=== PATIENT | female | born 1985 | race Asian ===

== ENCOUNTER 2020-06-08 10:01 | Emergency (ER) | payer SELFPAY ==
--- NOTE | 2020-06-08 10:33 | ED Physician Documentation ---
PD HPI FEMALE - Stated complaint Stated Complaint: FEMALE - Chief complaint Chief Complaint: UTI - History obtained from History obtained from: Patient - History of Present Illness Timing - onset: Yesterday Timing - duration: Days (1-2) Timing - details: Abrupt onset, Still present Associated symptoms: Dysuria, Urinary frequency, Hematuria (today). No: Fever, Vaginal discharge, Genital sore/lesion Contributing factors: No: Exposed to STD Similar symptoms before: Has not had sx before Recently seen: Not recently seen Review of Systems Constitutional: denies: Fever, Chills Nose: denies: Rhinorrhea / runny nose, Congestion Throat: denies: Sore throat Respiratory: denies: Cough GI: denies: Abdominal Pain, Nausea, Vomiting, Diarrhea : reports: Dysuria, Frequency. denies: Discharge Skin: denies: Rash PD PAST MEDICAL HISTORY - Past Medical History Past Medical History: No - Present Medications Home Medications: Ambulatory Orders Medication Instructions Recorded Confirmed Naproxen 375 mg PO TID #15 tablet 06/08/20 Phenazopyridine HCl [Pyridium] 100 mg PO TID PRN #15 tablet 06/08/20 Sulfamethox/Trimeth 800/160 1 each PO BID #14 tablet 06/08/20 [Bactrim Ds 800/160] - Allergies Allergies/Adverse Reactions: Allergies Allergy/AdvReac Type Severity Reaction Status Date / Time No Known Drug Allergies Allergy Verified 06/08/20 10:19 PD ED PE NORMAL - Vitals Vital signs reviewed: Yes - General General: Alert and oriented X 3, No acute distress, Well developed/nourished - Female Female : Deferred - Back Back: No CVA TTP - Derm Derm: Normal color, Warm and dry Results - Vitals Vitals: Vital Signs - 24 hr 06/08/20 06/08/20 06/08/20 10:16 10:40 11:17 Temperature 37 C 37.3 C Heart Rate 115 H 102 H 105 H Respiratory 16 16 18 Rate Blood Pressure 120/84 H 121/86 H 134/87 H O2 Saturation 99 98 98 Oxygen O2 Source Room air - Labs Labs: Laboratory Tests 06/08/20 10:35 Urine Color YELLOW Urine Clarity CLOUDY Urine pH 7.0 Ur Specific Arthur 1.025 Urine Protein 100 H Urine Glucose (UA) NEGATIVE Urine Ketones NEGATIVE Urine Occult Blood LARGE H Urine Nitrite POSITIVE H Urine Bilirubin NEGATIVE Urine Urobilinogen 0.2 (NORMAL) Ur Leukocyte Esterase MODERATE H Urine RBC TNTC H Urine WBC >25 H Urine WBC Clumps PRESENT Ur Squamous Epith Cells MANY Squamous H Urine Bacteria Many H Urine Culture Comments NOT INDICATED PD MEDICAL DECISION MAKING - ED course Complexity details: reviewed results, considered differential, d/w patient Departure - Departure Disposition: 01 Home, Self Care Clinical Impression: Urinary tract infection Qualifiers: Urinary tract infection type: acute cystitis Hematuria presence: with hematuria Qualified Code(s): N30.01 - Acute cystitis with hematuria Condition: Stable Record reviewed to determine appropriate education?: Yes Instructions: ED UTI Cystitis Female Follow-Up: Yen Ledbetter [place] [Primary Care Provider] - Prescriptions: Sulfamethox/Trimeth 800/160 [Bactrim Ds 800/160] 1 each PO BID #14 tablet Naproxen 375 mg PO TID #15 tablet Phenazopyridine HCl [Pyridium] 100 mg PO TID PRN #15 tablet PRN Reason: Abdominal Pain Comments: Urine sample is consistent with an infection. This would correlate with your symptoms. Bactrim antibiotic twice daily for a week. Phenazopyridine 3 times a day as needed for urinary discomfort. This will turn your urine a little orange so not to worry. Stay well-hydrated. Naproxen anti-inflammatory 2-3 times a day for the discomfort. Add Tylenol if needed for pain. I would anticipate improvement over the next 2 to 3 days and resolved by 3 to 5 days. Recheck if not better in that timeframe. Discharge Date/Time: 06/08/20 11:28
[2020-06-08 10:46] LABS: BILIRUBIN,URINE NEGATIVE (NEGATIVE); GLUCOSE, URINE (UA) NEGATIVE (NEGATIVE); KETONES,URINE (UA) NEGATIVE (NEGATIVE); LEUKOCYTE ESTERASE, URINE MODERATE (NEGATIVE); NITRITE,URINE POSITIVE (NEGATIVE); OCCULT BLOOD,URINE LARGE (NEGATIVE); PROTEIN,URINE 100 mg/dL (NEGATIVE); UROBILINOGEN,URINE 0.2 (NORMAL) E.U./dL (NORMAL)
[2020-06-08 10:53] LABS: CLARITY,URINE CLOUDY (CLEAR)
[2020-06-08 10:57] LABS: BACTERIA,URINE Many /HPF (None Seen); RBC,URINE TNTC /HPF (0-5); SQUAMOUS EPITHELIAL CELL,UR MANY Squamous (<= Few); WBC CLUMPS,URINE PRESENT
[2020-06-08] MEDS ORDERED: PHENAZOPYRIDINE 100 MG TABLET PO STA (11:05)
[2020-06-08] MEDS ORDERED: SULFAMETH/TRIMETH DS 800/160 MG TABLET PO STA (11:05)
[2020-06-08] MEDS ORDERED: NAPROXEN 250 MG TABLET PO STA (11:05)
[2020-06-08 11:18] VITALS: BP 134/87
== END 2020-06-08 11:28 | disposition home or self-care (01) ==
LOC: ED 10:01
DX: N30.01 Acute cystitis with hematuria (principal)
CPT/HCPCS: 81001; 99283; A9270; 87086

== ENCOUNTER 2022-04-05 08:00 | Outpatient (CLI) | payer OTHER ==
[2022-04-05 20:54] LABS: BILIRUBIN,URINE NEGATIVE (NEGATIVE); GLUCOSE, URINE (UA) NEGATIVE (NEGATIVE); KETONES,URINE (UA) NEGATIVE (NEGATIVE); LEUKOCYTE ESTERASE, URINE SMALL (NEGATIVE); NITRITE,URINE POSITIVE (NEGATIVE); OCCULT BLOOD,URINE LARGE (NEGATIVE); PH,URINE 6.5 PH (5.0-7.5); PROTEIN,URINE 100 mg/dL (NEGATIVE); UROBILINOGEN,URINE 1 (NORMAL) E.U./dL (NORMAL)
[2022-04-05 20:56] LABS: CLARITY,URINE CLEAR (CLEAR)
[2022-04-05 21:03] LABS: BACTERIA,URINE Moderate /HPF (None Seen); SQUAMOUS EPITHELIAL CELL,UR FEW Squamous (<= Few); WBC,URINE >25 /HPF (0-5)
== END 2022-04-05 23:59 | disposition home or self-care (01) ==
LOC: LAB.N 08:00
PROVIDERS: ATTEND Emergency Medicine
DX: R31.9 Hematuria, unspecified (principal)
CPT/HCPCS: 81001; 87077; 87086; 87181